=== PATIENT | female | born 1975 | race Caucasian/White ===

== ENCOUNTER → 2018-02-20 | Outpatient (CLI) | payer OTHER, MEDICAID ==
[~2018-02-20] VITALS: Ht 160 cm; Wt 108.9 kg
[~2018-02-20] MED LIST: ASPIR 8181 MG PO; ATORVASTATIN CA40 MG PO; LAMICTAL 25 MG25 M1 PO; LISINOPRIL10 MG PO; LYRICA 50 MG50 MG PO; OMEPRAZOLE40 MG PO; PRILOSEC 20 MG20 MG PO; WELLBUTRIN XL300 MG PO
[2018-02-20 10:14] VITALS: BP 132/72
[2018-02-20 10:45] LABS: HEMATOCRIT 42.3 % (37.0-47.0); HEMOGLOBIN 14.2 gm/dL (12.0-15.0); MCH 28.5 pg (26.0-34.0); MCHC 33.5 g/dL (28.0-37.0); MPV 7.5 fl. (7.2-11.1); RBC 4.98 mil/uL (4.20-5.00); RDW-CV 14.8 % (10.5-14.5); WBC 8.1 thou/uL (4.0-11.0)
[2018-02-20 10:55] LABS: APTT 28.5 Seconds (25.0-31.3); PROTIME 9.9 Seconds (9.20-11.50)
[2018-02-20 10:58] LABS: ANION GAP 6 mmol/L (7-16); BUN 15 mg/dL (7-18); CHLORIDE 102 mmol/L (98-107); CO2 29 mmol/L (21-32); CREATININE 0.9 mg/dL (0.6-1.3); GLUCOSE 76 mg/dL (70-99); POTASSIUM 4.3 mmol/L (3.5-5.1); SODIUM 137 mmol/L (136-145)
[2018-02-20 11:03] LABS: ALBUMIN 3.5 g/dL (3.4-5.0); ALKALINE PHOSPHATASE 158 U/L (46-116); CHOLESTEROL 138 mg/dL (<200); HDL CHOLESTEROL 27 mg/dL (>40); LDL CHOLESTEROL 82 mg/dL (<100); SGOT 11 U/L (15-37); SGPT 27 U/L (30-65); TC:HDL 5.1 Ratio (Not establshd); TOTAL BILIRUBIN 0.3 mg/dL (<0.1-1.0); TOTAL PROTEIN 7.9 g/dL (6.4-8.2); TRIGLYCERIDE 148 mg/dL (<150); VLDL 30 mg/dL (<40)
[2018-02-20 11:05] LABS: SERUM ASSESSMENT Clear
[2018-02-20 11:59] VITALS: BP 143/85
--- NOTE | 2018-02-20 17:30 | CARD ---
[address] [address] CARDIAC CATH REPORT Name: ODALIS ARMENTA Room: [facility].#: [id number] Admission: 02/20/18 Attend Phys: Jaison Boss MD Discharge: Date of : 79 Report #: [id number] THIS REPORT FOR: //name// APPROVED REPORT Study performed: 02/20/2018 10:50:15 Patient Details Patient Status: Out-Patient Room #: The patient is a 42 year-old female Event Personnel Jaison Boss Fire Extinguisher Charger, Amy Pryor RN Animal Taxonomist, Lalo Erickson (R) Monitor, Marla Venegas RTR Scrub, Christianne Weaver RN Animal Taxonomist Procedures Performed Left Heart Cath w/or w/o Coronaries Procedure Narrative A 6fr Ultimum Sheath sheath was inserted into the right femoral artery. Coronary angiography was performed using coronary diagnostic catheters. The right coronary system was accessed and visualized with a Diagnostic JR 4 catheter. The left coronary system was accessed and visualized with a Diagnostic JL 4 catheter. The left ventricle was accessed and visualized with a Diagnostic Angled Pig catheter. Left ventricular/Aortic Valve gradient assessed via catheter pullback. Closure device was deployed with a Fr MynxGrip 6/7F. The patient tolerated the procedure well and there were no complications associated with the procedure. Intraoperative Conscious Sedation Sedation start time: 11:35 Case end Time: 11:48 Fentanyl 50 mcg Versed 2 mg Fluoro Time: 1.3 minutes Dose: DAP 97852 cGycm2 721 mGy Contrast Type and Amount: Visipaque 140 ml Coronary Angiography The patient's coronary anatomy is right dominant. Diagnostic [place] [address] CARDIAC CATH REPORT Name: KATHIODALIS Room: [facility]#: [id number] Admission: 02/20/18 Attend Phys: Jaison Boss MD Discharge: Date of : 79 Report #: [id number] LAD Widely patent stents in the proximal portion of the left anterior descending coronary artery. The remainder the vessel is free of disease. Diagonal 1 Normal Diagonal 2 Normal Circumflex Normal OM1 Normal OM2 Normal Right Coronary 10% narrowing in the proximal and mid vessel. The distal vessel is free of significant disease. R PDA Normal RPLV Normal Left Ventriculography The left ventricle is normal in size with mildly decreased contractility. The left ventricular ejection fraction is estimated to be 50%. Hemodynamics The aortic pressure is 122/69 mmHg with a mean of 94 mmHg. The left ventricular pressure is 112/11 mmHg with a mean of mmHg. The left ventricular end diastolic pressure is 22 mmHg. Conclusion 1. Widely patent stent in the proximal left anterior descending coronary artery. 2. No other significant stenoses noted. 3. Mildly decreased LV systolic function with global hypokinesis. 4. Moderately elevated left ventricular end-diastolic pressure. Recommendations 1. Continue medical management and aggressive risk factor modification. <ELECTRONICALLY SIGNED> By: Jaison Boss MD, FACC 02/20/18 173 [id number] 173Miclazara Boss MD, FACC /INF
== END | disposition home or self-care (01) ==
LOC: M.CL 10:03
PROVIDERS: Internal Medicine Cardiovascular Disease
DX: I11.0 Hypertensive heart disease with heart failure (principal); I50.30 Unspecified diastolic (congestive) heart failure; I42.9 Cardiomyopathy, unspecified; I25.2 Old myocardial infarction; E78.2 Mixed hyperlipidemia; M79.7 Fibromyalgia; F32.9 Major depressive disorder, single episode, unspecified; F41.9 Anxiety disorder, unspecified; F17.210 Nicotine dependence, cigarettes, uncomplicated; Z90.710 Acquired absence of both cervix and uterus; Z90.49 Acquired absence of other specified parts of digestive tract; Z95.1 Presence of aortocoronary bypass graft; Z98.890 Other specified postprocedural states; Z82.49 Family history of ischemic heart disease and other diseases of the circulatory system; Z80.3 Family history of malignant neoplasm of breast; Z79.82 Long term (current) use of aspirin; Z79.899 Other long term (current) drug therapy